=== PATIENT | female | born 1960 | race Caucasian/White ===

== ENCOUNTER 2017-05-10 19:32 | Emergency (ER) | payer BC ==
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
[2017-05-10] MEDS ORDERED: ONDANSETRON HCL IV 4 MG/2 ML VIAL IM ONE (19:54)
[2017-05-10] MEDS ORDERED: MORPHINE SULFATE 5 MG/ML PFS IVP ONE (19:54)
[2017-05-10] MEDS ORDERED: 0.9 % SODIUM CHLORIDE 1,000 ML BAG IV ONE (19:55)
[2017-05-10] MEDS ORDERED: METOPROLOL SUCC 50 MG TABLET PO ONE (20:05)
[2017-05-10] MEDS ORDERED: LORAZEPAM 2 MG/ML VIAL IV ONE (20:09)
== END 2017-05-10 20:39 | disposition short-term general hospital (02) ==
LOC: ER 19:32
DX: T20.29XA Burn of second degree of multiple sites of head, face, and neck, initial encounter (principal); T21.21XA Burn of second degree of chest wall, initial encounter; T22.292A Burn of second degree of multiple sites of left shoulder and upper limb, except wrist and hand, initial encounter; T22.291A Burn of second degree of multiple sites of right shoulder and upper limb, except wrist and hand, initial encounter; T21.23XA Burn of second degree of upper back, initial encounter; T21.24XA Burn of second degree of lower back, initial encounter; X12.XXXA Contact with other hot fluids, initial encounter; Y93.G3 Activity, cooking and baking; Y92.000 Kitchen of unspecified non-institutional (private) residence as the place of occurrence of the external cause; I10 Essential (primary) hypertension
CPT/HCPCS: 16030; 99285 ×2; 96374; 96372; 96375; 96361; J2405; J2060; J2270; J7030

== ENCOUNTER 2019-01-14 07:29 | Day surgery (SDC) | payer BC ==
[~2019-01-14 07:29] MED LIST: ACETAMINOPHEN 1,000 MG/100 ML BTL IVPB ONE; CEFAZOLIN 1 Gram 1 GM/50 ML BAG IVPB ONE; FAMOTIDINE 20MG TABLET PO ONE; MECLIZINE 25 MG TABLET PO ONE; METOCLOPRAMIDE 10 MG TABLET PO ONE
[2019-01-14] MEDS ORDERED: ROPIVACAINE HCL (NAROPIN) /PF 5MG/ML 20ML VIAL IV ONE (07:30)
[2019-01-14] MEDS ORDERED: LIDOCAINE 2% MDV (20MG/ML) 20ML VIAL IV ONE (07:30)
[2019-01-14] MEDS ORDERED: ONDANSETRON HCL IV 4 MG/2 ML VIAL IVP ONE (07:30)
[2019-01-14] MEDS ORDERED: DEXAMETHASONE 4 MG/ML 1ML VIAL IVP ONE ×2 (07:30)
[2019-01-14] MEDS ORDERED: NEOSTIGMINE 1 MG/1 ML,10ML VIAL IV ONE (07:30)
[2019-01-14] MEDS ORDERED: NALOXONE 0.4 MG/1 ML VIAL IV ONE (07:30)
[2019-01-14] MEDS ORDERED: PROPOFOL 10 MG/ML VIAL IV ONE (07:30)
[2019-01-14] MEDS ORDERED: MIDAZOLAM HCL 2MG/2ML VIAL IV ONE (07:30)
[2019-01-14] MEDS ORDERED: GLYCOPYRROLATE 0.2 MG/ML ML IV ONE (07:30)
[2019-01-14] MEDS ORDERED: FENTANYL PF 100MCG/2ML VIAL IV ONE (07:30)
[2019-01-14] MEDS ORDERED: 0.9 % SODIUM CHLORIDE 10 ML VIAL IVP ONE (07:30)
[2019-01-14] MEDS ORDERED: RINGERS SOLUTION,LACTATED 1,000 ML IV ONE (08:10)
[2019-01-14] MEDS ORDERED: BUPIVACAINE 0.25% W/EPI MPF 30ML VIAL SQ ONE (10:10)
[2019-01-14] MEDS ORDERED: FENTANYL PF 100MCG/2ML VIAL IVP ONE (10:36)
[2019-01-14] MEDS ORDERED: FENTANYL PF 100MCG/2ML VIAL IVP PRN ×2 (10:46→10:56)
[2019-01-14] MEDS ORDERED: HYDROCODONE/APAP 5/325MG TABLET PO ONE (11:19)
[2019-01-14] MEDS ORDERED: HYDROMORPHONE HCL 2 MG/ML VIAL IVP ONE (11:44)
[2019-01-14] MEDS ORDERED: 0.9 % SODIUM CHLORIDE 1000ML 500 ML IV ONE (11:45)
--- NOTE | 2019-01-15 13:30 | Operative Note ---
DATE OF SURGERY: 01/14/2019 SURGEON: Jurgen Connell DO PREOPERATIVE DIAGNOSES: 1. Incarcerated ventral hernia. 2. Umbilical hernia. POSTOPERATIVE DIAGNOSES: 1. Incarcerated ventral hernia. 2. Umbilical hernia. OPERATION: Laparoscopic ventral herniorrhaphy with mesh. INDICATION: The patient is a 58-year-old female who presented to the clinic with pain and bulging just above her navel. She on exam had an incarcerated ventral hernia. We did discuss repair. Risks, benefits, and alternatives were discussed. She also had a small navel hernia which we would fix at the same time. Risks include but are not limited to bleeding, infection, acute or chronic pain, recurrence. She understood this fully. Consent was signed, questions answered. PROCEDURE: She was taken to the operating room and placed in a supine position. General anesthesia was administered per the department of anesthesia. The patient's abdomen was prepped and draped in the usual fashion. The patient had undergone a preoperative tap block per department of anesthesia. At this time, left upper quadrant region was cannulated with an 11 mm Visiport. All abdominal layers were traversed under direct visualization. Once adequate pneumoperitoneum was established, additional 5 mm right flank and 5 mm left flank ports were then placed. The patient had a hernia at the base of her falciform ligament. The falciform ligament was taken down with the Carlos A harmonic. The hernia contents were reduced. She also had a small incarcerated umbilical hernia. Both hernia defects were close to each other. Each measured about 1 cm. At this time, a 10 x 15 Proceed mesh was obtained. Four preplaced cardinal stitches were placed in the mesh. Double scroll technique was used. This was placed intraperitoneally. The cephalad and caudad stitches were held in place transfascially. The east- west stitches were held in place in a similar fashion. A tacking device was used to tack the mesh in a 360-degree fashion. At this time, the sutures were tied down. Skin dimpling was released. The mesh was centered on the 2 hernias. The scope was flipped around. There was no bleeding in the peritoneal cavities. No bowel injury noted. At this time, pneumoperitoneum was released. All ports removed. The fascia was closed with 0 Vicryl in a [id number] fashion. Skin in all 3 ports closed with 4-0 Vicryl. She was taken to the recovery room in satisfactory condition. FINDINGS ON SURGERY: Incarcerated ventral hernia repaired as above. CC: PAULA MAYER MD, FACP ALLEN
== END 2019-01-14 12:25 | disposition home or self-care (01) ==
LOC: SUR 07:29
PROVIDERS: ATTEND Surgery
DX: K43.6 Other and unspecified ventral hernia with obstruction, without gangrene (principal); K42.9 Umbilical hernia without obstruction or gangrene; I10 Essential (primary) hypertension; I48.91 Unspecified atrial fibrillation; Z79.01 Long term (current) use of anticoagulants
CPT/HCPCS: J2310; J2405; J2710; J7030; J7120

== ENCOUNTER 2019-05-24 08:47 | Day surgery (SDC) | payer BC ==
[2019-05-24] MEDS ORDERED: LIDOCAINE 2% MDV (20MG/ML) 20ML VIAL IV ONE (08:48)
[2019-05-24] MEDS ORDERED: MIDAZOLAM HCL 2MG/2ML VIAL IV ONE (08:48)
[2019-05-24] MEDS ORDERED: PROPOFOL 10 MG/ML VIAL IV ONE (08:48)
--- NOTE | 2019-05-27 12:30 | Operative Note ---
SURGEON: Ji Savage MD OPERATION: COLONOSCOPY. INDICATIONS: This is a 58-year-old female with history of colon polyps who presented for surveillance colonoscopy. POSTOPERATIVE DIAGNOSIS: Normal colon with no neoplastic or ulcerative lesions. ANESTHESIA: Sedation is per Anesthesia. Pulse oximetry was monitored throughout the procedure to maintain O2 saturation of 90% or greater. Supplemental oxygen was administered via nasal cannula. Cardiac and vital signs were monitored throughout the duration of the procedure, and they were stable. The procedure of colonoscopy and risks and alternatives of the procedure, including the risk of bleeding and perforation, among others, were explained to the patient who voiced understanding and agreed to have the procedure done. Physical examination was performed, and the patient was found stable for sedation. PROCEDURE: The patient was placed in the left lateral position. Sedation was initiated. A digital rectal exam was performed and showed some mild external hemorrhoids with no palpable rectal masses. An Olympus PCF-180AL colonoscope was then inserted into the rectum under direct visualization. It was advanced to the cecum without difficulty. The ileocecal valve and appendiceal orifice were identified and photographed. The colonic mucosa was carefully examined upon introduction of the colonoscope. There were no lesions noted. The ileocecal valve was intubated and terminal ileal mucosa was inspected for about 10 cm and it appeared normal. The colonoscope was then withdrawn while carefully examining the colonic mucosal surfaces. No other lesions were noted. The bowel preparation was good. In the rectum, retroflexion was performed and grade 1 internal hemorrhoids were noted. The colonoscope was then withdrawn and the procedure was terminated. The patient tolerated the procedure well without any immediate complications. The patient remained with stable vital signs and was transferred to the recovery room. RECOMMENDATIONS: 1. The patient should be on a high-fiber diet. 2. The patient is to have a repeat colonoscopy for surveillance in 5 years. Thank you for allowing me to participate in the care of your patient. ALLEN
== END 2019-05-24 10:40 | disposition home or self-care (01) ==
LOC: HOP 08:47
PROVIDERS: ATTEND Internal Medicine Gastroenterology
DX: Z12.11 Encounter for screening for malignant neoplasm of colon (principal); Z86.010 Personal history of colon polyps; I48.91 Unspecified atrial fibrillation; I10 Essential (primary) hypertension
CPT/HCPCS: 00812; G0105

== ENCOUNTER 2019-09-19 09:32 | Emergency (ER) | payer BC ==
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
--- NOTE | 2019-09-19 10:39 | RADIOLOGY REPORT ---
EXAMINATION: Right Shoulder, Complete Minimum Two Views EXAM DATE: 09/19/2019 10:16 AM TECHNIQUE: AP, Grashey, and axillary INDICATION: R shoulder pain COMPARISON: None ENCOUNTER: Initial FINDINGS: Normal bony architecture. No acute fracture or dislocation. Mild AC arthrosis. IMPRESSION: No acute abnormality, follow-up MRI if symptoms persist Dictated by: Yosef Rojas MD on 09/19/2019 10:37 AM. .
== END 2019-09-19 10:58 | disposition home or self-care (01) ==
LOC: ER 09:32
DX: G89.11 Acute pain due to trauma (principal); M25.511 Pain in right shoulder; W00.0XXA Fall on same level due to ice and snow, initial encounter; Y93.01 Activity, walking, marching and hiking; I10 Essential (primary) hypertension
CPT/HCPCS: 99283